=== PATIENT | male | born 1965 | race African-American/Black ===

== ENCOUNTER 2017-02-25 14:58 | Inpatient (IN) | payer OTHER ==
[2017-02-25 15:57] VITALS: BMI 23.6
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
[2017-02-25] MEDS ORDERED: MAG HYDROX/AL HYDROX/SIMETH 30 ML UNIT-DOSE CUP PO PRN (19:19)
[2017-02-25] MEDS ORDERED: chlordiazePOXIDE HCL 25 MG CAPSULE PO PRN (19:19)
[2017-02-25] MEDS ORDERED: guaiFENesin/D-METHORPHAN HB 10 ML UNIT-DOSE CUPS PO PRN (19:19)
[2017-02-25] MEDS ORDERED: LOPERAMIDE HCL 2 MG CAPSULE PO PRN (19:19)
[2017-02-25] MEDS ORDERED: MENTHOL/PHENOL 1 EACH UD MM PRN (19:19)
[2017-02-25] MEDS ORDERED: MAGNESIUM CITRATE 300 ML BOTTLE PO PRN (19:19)
[2017-02-25] MEDS ORDERED: ACETAMINOPHEN 325 MG TABLET (FP) PO PRN (19:19)
[2017-02-25] MEDS ORDERED: MAGNESIUM HYDROX 2400MG/30ML ORAL SUSPENSION 30 ML CUP PO PRN (19:19)
[2017-02-25] MEDS ORDERED: P-EPHED 60MG/TRIPROLIDI 2.5MG TABLET PO PRN (19:19)
[2017-02-25] MEDS ORDERED: ALBUTEROL SO4 6.7 GM HFA INHALER IH PRN (19:21)
[2017-02-25] MEDS ORDERED: HYDROCORTISONE 1% TOPICAL CREAM 30 GM TUBE TP PRN (19:21)
[2017-02-25] MEDS ORDERED: ALBUTEROL SO4 2.5/IPRATROPIUM 0.5 INH SOL 3 ML VIAL.NEB. NEB PRN (19:21)
[2017-02-25] MEDS: THIAMINE HCL 100 MG TABLET (FP) PO SCH (21:54)
[2017-02-25] MEDS: LIDOCAINE PATCH REMOVAL MC SCH (21:55)
[2017-02-25] MEDS: BUDESONIDE/FORMETEROL FUMARATE 80/4.5 mcg INHALER IH SCH (21:55)
[2017-02-25] MEDS: chlordiazePOXIDE HCL 25 MG CAPSULE PO SCH (22:00)
[2017-02-25 23:10] LABS: URINE APPEARANCE CLEAR; URINE BILIRUBIN NEGATIVE (NEGATIVE); URINE BLOOD NEGATIVE (NEGATIVE); URINE COLOR LTYELLOW; URINE GLUCOSE (UA) NEGATIVE (NEGATIVE); URINE KETONE NEGATIVE (NEGATIVE); URINE LEUK ESTERASE NEGATIVE (NEGATIVE); URINE NITRITE NEGATIVE (NEGATIVE); URINE PROTEIN 2+ (NEGATIVE); URINE UROBILINOGEN NEGATIVE mg/dL (0.2-1.0)
[2017-02-25 23:19] LABS: URINE MUCUS RARE; URINE RBC <1 /hpf (0-3); URINE WBC <1 /hpf (3-5)
[2017-02-26] MEDS: chlordiazePOXIDE HCL 25 MG CAPSULE PO SCH ×4 (05:31→22:46)
[2017-02-26 10:08] LABS: MCH 29.7 pg (25.7-33.7); MCHC 32.6 g/dl (32.0-35.9); MEAN CELL VOLUME 91.1 fl (80-96); MEAN PLT VOLUME 7.8 fl (7.5-11.1); PLATELET COUNT 237 K/MM3 (134-434); RDW 14.2 % (11.9-15.9); WHITE BLOOD COUNT 4.2 K/mm3 (4.0-10.0)
[2017-02-26] MEDS: PRENATAL VITAMINS W/ FOLIC ACID TABLET (FP) PO SCH (10:40)
[2017-02-26] MEDS: BUDESONIDE/FORMETEROL FUMARATE 80/4.5 mcg INHALER IH SCH ×2 (10:41→22:46)
[2017-02-26] MEDS: LIDOCAINE 5% TOPICAL PATCH TP SCH (10:41)
[2017-02-26 10:59] LABS: ALK PHOS 53 U/L (45-117); ANION GAP 7 (8-16); BILIRUBIN,TOTAL 0.7 mg/dL (0.2-1.0); CALCIUM 8.8 mg/dL (8.5-10.1); CO2 28 mmol/L (21-32); CREATININE 1.2 mg/dL (0.7-1.3); GLUCOSE,RANDOM 80 mg/dL (74-106); SGOT/AST 39 U/L (15-37); SGPT/ALT 33 U/L (12-78); TOT PROT 6.7 g/dl (6.4-8.2)
--- NOTE | 2017-02-26 11:21 | CONSULT ---
[facility] Psychiatric Consult - Data Date of interview: 02/26/17 Admission source: [facility] Identifying data: First admission to [facility] for this 52 y/o AA male seeking detox treatment for alcohol and marijuana dependence.Patient is single without children,homeless,unemployed and supported on welfare. Substance Abuse History: Confirmed by patient. Smoking Cessation. Smoking history: Former smoker. Have you smoked in the past 12 months: No. Aproximately how many cigarettes per day: 0. Hx Chewing Tobacco Use: No. Initiated information on smoking cessation: No. - Substance & Tx. History. Hx Alcohol Use: Yes. Hx Substance Use: Yes. Substance Use Type: Alcohol, Marijuana. Hx Substance Use Treatment: Yes (12/08/16 [facility]). - Substances Abused. Alcohol. Route: Oral. Frequency: Daily. Amount used: 8 -10 22 OZ BEERS. Age of first use: 17. Date of Last Use: 02/25/17. Marijuana/Hashish. Route: Smoking. Frequency: Daily. Amount used: $40. Age of first use: 17. Date of Last Use: 02/25/17 Medical History: Bronchial asthma. Psychiatric History: Patient denies. Physical/Sexual Abuse/Trauma History: No history of abuse reported. Additional Comment: Urine Drug Screen Results: THC-Marijuana, BZO- Benzodiazepines.Noted. Mental Status Exam - Mental Status Exam Alert and Oriented to: Time, Place, Person Cognitive Function: Good Patient Appearance: Well Groomed Mood: Hopeful, Euthymic Affect: Appropriate, Normal Range Patient Behavior: Fatigued, Appropriate, Cooperative Speech Pattern: Clear Voice Loudness: Normal Thought Process: Intact, Goal Oriented Thought Disorder: Not Present Hallucinations: Denies Suicidal Ideation: Denies Homicidal Ideation: Denies Insight/Judgement: Poor Sleep: Fair Appetite: Good Muscle strength/Tone: Normal Gait/Station: Normal Psychiatric Findings - Problem List ([place] 1, 2,3) (1) Alcohol dependence with uncomplicated withdrawal Current Visit: Yes Status: Acute (2) Cannabis dependence, uncomplicated Current Visit: Yes Status: Acute (3) Dermatitis Current Visit: Yes Status: Chronic Comment: back (4) Asthma Current Visit: Yes Status: Chronic Qualifiers: Asthma severity: mild persistent Asthma complication type: with status asthmaticus Qualified Code(s): J45.32 - Mild persistent asthma with status asthmaticus (5) Chronic back pain Current Visit: Yes Status: Chronic Qualifiers: Back pain location: low back pain Back pain laterality: midline Sciatica presence: without sciatica Qualified Code(s): M54.5 - Low back pain; G89.29 - Other chronic pain (6) Positive PPD, treated Current Visit: Yes Status: Resolved - Initial Treatment Plan Initial Treatment Plan: Psychoeducation.Detoxification.Observation.
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
[2017-02-26] MEDS: HYDROCORTISONE 1% TOPICAL CREAM 30 GM TUBE TP SCH ×3 (14:31→21:47)
[2017-02-26] MEDS: IBUPROFEN 400 MG TABLET (FP) PO PRN ×2 (17:15→22:48)
[2017-02-26] MEDS: THIAMINE HCL 100 MG TABLET (FP) PO SCH (22:45)
[2017-02-26] MEDS: diphenhydrAMINE HCL 50 MG CAPSULE PO PRN (22:46)
[2017-02-26] MEDS: LIDOCAINE PATCH REMOVAL MC SCH (22:46)
[2017-02-27] MEDS: chlordiazePOXIDE HCL 25 MG CAPSULE PO SCH ×3 (05:32→17:19)
[2017-02-27] MEDS: IBUPROFEN 400 MG TABLET (FP) PO PRN (08:35)
[2017-02-27] MEDS: HYDROCORTISONE 1% TOPICAL CREAM 30 GM TUBE TP SCH ×4 (11:01→22:54)
[2017-02-27] MEDS: BUDESONIDE/FORMETEROL FUMARATE 80/4.5 mcg INHALER IH SCH ×2 (11:01→23:30)
[2017-02-27] MEDS: PRENATAL VITAMINS W/ FOLIC ACID TABLET (FP) PO SCH (11:01)
[2017-02-27] MEDS: LIDOCAINE 5% TOPICAL PATCH TP SCH (11:02)
--- NOTE | 2017-02-27 12:30 | PN ---
[facility] CIWA - CIWA Score Nausea/Vomitin-No Nausea/No Vomiting Muscle Tremors: 4-Moderate,w/Arms Extend Anxiety: 4-Mod. Anxious/Guarded Agitation: 4-Moderately Restless Paroxysmal Sweats: 1-Minimal Palms Moist Orientation: 0-Oriented Tacttile Disturbances: 3-Moderate Itch/Numb/Burn Auditory Disturbances: 0-None Visual Disturbances: 0-None Headache: 0-None Present CIWA-Ar Total Score: 16 S Progress Note (SOAP) Subjective: ANXIETY,SWEATS,IRRITABILITY, PAIN MOUTH TRUAMA. Objective: 02/27/17 12:29 Vital Signs Temperature 97.4 F L 02/27/17 10:17 Pulse Rate 69 02/27/17 10:17 Respiratory Rate 16 02/27/17 10:17 Blood Pressure 122/86 02/27/17 10:17 O2 Sat by Pulse Oximetry (%) Laboratory Last Values WBC 4.2 K/mm3 (4.0-10.0) 02/26/17 07:00 RBC 4.57 M/mm3 (4.00-5.60) 02/26/17 07:00 Hgb 13.6 GM/dL (11.7-16.9) 02/26/17 07:00 Hct 41.7 % (35.4-49) 02/26/17 07:00 MCV 91.1 fl (80-96) 02/26/17 07:00 MCH 29.7 pg (25.7-33.7) 02/26/17 07:00 MCHC 32.6 g/dl (32.0-35.9) 02/26/17 07:00 RDW 14.2 % (11.9-15.9) 02/26/17 07:00 Plt Count 237 K/MM3 (134-434) 02/26/17 07:00 MPV 7.8 fl (7.5-11.1) 02/26/17 07:00 Sodium 140 mmol/L (136-145) 02/26/17 07:00 Potassium 3.6 mmol/L (3.5-5.1) 02/26/17 07:00 Chloride 105 mmol/L (98-107) 02/26/17 07:00 Carbon Dioxide 28 mmol/L (21-32) 02/26/17 07:00 Anion Gap 7 (8-16) L 02/26/17 07:00 BUN 15 mg/dL (7-18) 02/26/17 07:00 Creatinine 1.2 mg/dL (0.7-1.3) 02/26/17 07:00 Creat Clearance w eGFR > 60 (>60) 02/26/17 07:00 Random Glucose 80 mg/dL (74-106) 02/26/17 07:00 Calcium 8.8 mg/dL (8.5-10.1) 02/26/17 07:00 Total Bilirubin 0.7 mg/dL (0.2-1.0) 02/26/17 07:00 AST 39 U/L (15-37) H 02/26/17 07:00 ALT 33 U/L (12-78) 02/26/17 07:00 Alkaline Phosphatase 53 U/L (45-117) 02/26/17 07:00 Total Protein 6.7 g/dl (6.4-8.2) 02/26/17 07:00 Albumin 3.0 g/dl (3.4-5.0) L 02/26/17 07:00 Urine Color Ltyellow 02/25/17 23:00 Urine Appearance Clear 02/25/17 23:00 Urine pH 6.0 (5.0-8.0) 02/25/17 23:00 Ur Specific [place] 1.020 (1.005-1.025) 02/25/17 23:00 Urine Protein 2+ (NEGATIVE) H 02/25/17 23:00 Urine Glucose (UA) Negative (NEGATIVE) 02/25/17 23:00 Urine Ketones Negative (NEGATIVE) 02/25/17 23:00 Urine Blood Negative (NEGATIVE) 02/25/17 23:00 Urine Nitrite Negative (NEGATIVE) 02/25/17 23:00 Urine Bilirubin Negative (NEGATIVE) 02/25/17 23:00 Urine Urobilinogen Negative mg/dL (0.2-1.0) 02/25/17 23:00 Ur Leukocyte Esterase Negative (NEGATIVE) 02/25/17 23:00 Urine RBC <1 /hpf (0-3) 02/25/17 23:00 Urine WBC <1 /hpf (3-5) 02/25/17 23:00 Urine Mucus Rare 02/25/17 23:00 RPR Titer Nonreactive (NONREACTIVE) 02/26/17 07:00 Assessment: 02/27/17 12:29 WITHDRAWAL SX Plan: CONTINUE DETOX
[2017-02-27] MEDS ORDERED: LIDOCAINE VISCOUS 2% ORAL/TOP 20 ML UNIT-DOSE CUP MM PRN (12:31)
[2017-02-27] MEDS ORDERED: LIDOCAINE VISCOUS 2% ORAL/TOP 20 ML UNIT-DOSE CUP MM ONE (13:00)
[2017-02-27] MEDS: chlordiazePOXIDE 5 MG CAPSULE PO SCH (22:52)
[2017-02-27] MEDS: THIAMINE HCL 100 MG TABLET (FP) PO SCH (22:52)
[2017-02-27] MEDS: diphenhydrAMINE HCL 50 MG CAPSULE PO PRN (22:53)
[2017-02-27] MEDS: LIDOCAINE PATCH REMOVAL MC SCH (23:29)
[2017-02-28] MEDS: hydrOXYzine PAMOATE 50 MG CAPSULE (FP) PO PRN (02:52)
[2017-02-28] MEDS: chlordiazePOXIDE 5 MG CAPSULE PO SCH ×3 (06:10→17:10)
[2017-02-28] MEDS: LIDOCAINE 5% TOPICAL PATCH TP SCH (10:54)
[2017-02-28] MEDS: BUDESONIDE/FORMETEROL FUMARATE 80/4.5 mcg INHALER IH SCH ×2 (10:54→22:40)
[2017-02-28] MEDS: PRENATAL VITAMINS W/ FOLIC ACID TABLET (FP) PO SCH (10:54)
[2017-02-28] MEDS: HYDROCORTISONE 1% TOPICAL CREAM 30 GM TUBE TP SCH ×4 (10:55→22:40)
--- NOTE | 2017-02-28 11:35 | EKG ---
Test Reason : Blood Pressure : / mmHG Vent. Rate : 065 BPM Atrial Rate : 065 BPM P-R Int : 138 ms QRS Dur : 086 ms QT Int : 400 ms P-R-T Axes : 060 074 049 degrees QTc Int : 416 ms NORMAL SINUS RHYTHM NORMAL ECG NO PREVIOUS ECGS AVAILABLE Confirmed by JESSICA STEIN MD ([id number]) on 02/28/2017 11:35:35 AM Referred By: Confirmed By:JESSICA STEIN MD
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
[2017-02-28] MEDS: chlordiazePOXIDE HCL 10 MG CAPSULE PO SCH (22:39)
[2017-02-28] MEDS: diphenhydrAMINE HCL 50 MG CAPSULE PO PRN (22:39)
[2017-02-28] MEDS: THIAMINE HCL 100 MG TABLET (FP) PO SCH (22:39)
[2017-02-28] MEDS: LIDOCAINE PATCH REMOVAL MC SCH (22:40)
[2017-03-01] MEDS: hydrOXYzine PAMOATE 50 MG CAPSULE (FP) PO PRN (02:16)
[2017-03-01] MEDS: chlordiazePOXIDE HCL 10 MG CAPSULE PO SCH (05:09)
--- NOTE | 2017-03-01 09:29 | DS ---
[facility] Detox Discharge Summary Admission Date: 02/25/17 Discharge Date: 03/01/17 - History Present History: Alcohol Dependence, Cannabis Dependence Additional Comments: DETOX COMPLETED.ALERT O X 3.NAD. PT INSTRUCTED TO FOLLOW UP WITH PMD FOR MEDICAL MANAGEMENT Pertinent Past History: ASTHMA CHRONIC LOWER BACK PAIN - Physical Exam Results Vital Signs: Vital Signs Temperature 97.7 F 03/01/17 06:44 Pulse Rate 92 H 03/01/17 06:44 Respiratory Rate 18 03/01/17 06:44 Blood Pressure 132/94 03/01/17 06:44 O2 Sat by Pulse Oximetry (%) Pertinent Admission Physical Exam Findings: WITHDRAWAL SX Laboratory Last Values WBC 4.2 K/mm3 (4.0-10.0) 02/26/17 07:00 RBC 4.57 M/mm3 (4.00-5.60) 02/26/17 07:00 Hgb 13.6 GM/dL (11.7-16.9) 02/26/17 07:00 Hct 41.7 % (35.4-49) 02/26/17 07:00 MCV 91.1 fl (80-96) 02/26/17 07:00 MCH 29.7 pg (25.7-33.7) 02/26/17 07:00 MCHC 32.6 g/dl (32.0-35.9) 02/26/17 07:00 RDW 14.2 % (11.9-15.9) 02/26/17 07:00 Plt Count 237 K/MM3 (134-434) 02/26/17 07:00 MPV 7.8 fl (7.5-11.1) 02/26/17 07:00 Sodium 140 mmol/L (136-145) 02/26/17 07:00 Potassium 3.6 mmol/L (3.5-5.1) 02/26/17 07:00 Chloride 105 mmol/L (98-107) 02/26/17 07:00 Carbon Dioxide 28 mmol/L (21-32) 02/26/17 07:00 Anion Gap 7 (8-16) L 02/26/17 07:00 BUN 15 mg/dL (7-18) 02/26/17 07:00 Creatinine 1.2 mg/dL (0.7-1.3) 02/26/17 07:00 Creat Clearance w eGFR > 60 (>60) 02/26/17 07:00 Random Glucose 80 mg/dL (74-106) 02/26/17 07:00 Calcium 8.8 mg/dL (8.5-10.1) 02/26/17 07:00 Total Bilirubin 0.7 mg/dL (0.2-1.0) 02/26/17 07:00 AST 39 U/L (15-37) H 02/26/17 07:00 ALT 33 U/L (12-78) 02/26/17 07:00 Alkaline Phosphatase 53 U/L (45-117) 02/26/17 07:00 Total Protein 6.7 g/dl (6.4-8.2) 02/26/17 07:00 Albumin 3.0 g/dl (3.4-5.0) L 02/26/17 07:00 Urine Color Ltyellow 02/25/17 23:00 Urine Appearance Clear 02/25/17 23:00 Urine pH 6.0 (5.0-8.0) 02/25/17 23:00 Ur Specific [place] 1.020 (1.005-1.025) 02/25/17 23:00 Urine Protein 2+ (NEGATIVE) H 02/25/17 23:00 Urine Glucose (UA) Negative (NEGATIVE) 02/25/17 23:00 Urine Ketones Negative (NEGATIVE) 02/25/17 23:00 Urine Blood Negative (NEGATIVE) 02/25/17 23:00 Urine Nitrite Negative (NEGATIVE) 02/25/17 23:00 Urine Bilirubin Negative (NEGATIVE) 02/25/17 23:00 Urine Urobilinogen Negative mg/dL (0.2-1.0) 02/25/17 23:00 Ur Leukocyte Esterase Negative (NEGATIVE) 02/25/17 23:00 Urine RBC <1 /hpf (0-3) 02/25/17 23:00 Urine WBC <1 /hpf (3-5) 02/25/17 23:00 Urine Mucus Rare 02/25/17 23:00 RPR Titer Nonreactive (NONREACTIVE) 02/26/17 07:00 - Treatment Hospital Course: Detox Protocol Followed, Detoxed Safely, Responded well, Discharged Condition Good, Rehab Referral Accepted Patient has Accepted a Rehab Referral to: [facility] - Medication Discharge Medications: Ambulatory Orders Albuterol Sulfate Inhaler - [Ventolin Hfa Inhaler -] 2 inh PO Q4H PRN 02/25/17 Budesonide/Formeterol Fumarate [SYMBICORT 80/4.5mcg -] 1 inh PO BID 02/25/17 - Diagnosis (1) Alcohol dependence with uncomplicated withdrawal Current Visit: Yes Status: Acute (2) Cannabis dependence, uncomplicated Current Visit: Yes Status: Acute (3) Weight loss Current Visit: Yes Status: Acute (4) Asthma Current Visit: Yes Status: Chronic Qualifiers: Asthma severity: mild intermittent Asthma complication type: uncomplicated Qualified Code(s): J45.20 - Mild intermittent asthma, uncomplicated (5) Chronic back pain Current Visit: Yes Status: Chronic Qualifiers: Back pain location: low back pain Back pain laterality: midline Sciatica presence: without sciatica Qualified Code(s): M54.5 - Low back pain; G89.29 - Other chronic pain (6) Dermatitis Current Visit: Yes Status: Acute (7) Laceration of mouth Current Visit: Yes Status: Acute Qualifiers: Encounter type: sequela Qualified Code(s): S01.512S - Laceration without foreign body of oral cavity, sequela (8) Laceration of mouth, internal Current Visit: Yes Status: Acute Qualifiers: Encounter type: sequela Qualified Code(s): S01.512S - Laceration without foreign body of oral cavity, sequela - AMA Did Patient Leave Against Medical Advice: No
[2017-03-01 10:04] VITALS: BP 117/88; PULSE 93; TEMP 99
== END 2017-03-01 09:02 | disposition home or self-care (01) | DRG 775 ==
LOC: YASAS 14:58 → Y3N 20:12
PROVIDERS: ADMIT Internal Medicine Addiction Medicine; ATTEND Internal Medicine Addiction Medicine
PROC: HZ2ZZZZ Detoxification Services for Substance Abuse Treatment (ICD-10-PCS; principal; 2017-03-01)
DX: F10.230 Alcohol dependence with withdrawal, uncomplicated (principal); F12.20 Cannabis dependence, uncomplicated; F34.1 Dysthymic disorder; J45.20 Mild intermittent asthma, uncomplicated; L30.9 Dermatitis, unspecified; M54.5 Low back pain; G89.29 Other chronic pain; R76.11 Nonspecific reaction to tuberculin skin test without active tuberculosis
CPT/HCPCS: 36415; 71020-TC; 80053; 81003; 81015; 85027; 86593; 93005; 93010

== ENCOUNTER 2020-03-22 13:08 | Inpatient (IN) | payer OTHER ==
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
[2020-03-22] MEDS ORDERED: MAGNESIUM CITRATE 300 ML BOTTLE PO PRN (15:59)
[2020-03-22] MEDS ORDERED: ACETAMINOPHEN 325 MG TABLET (FP) PO PRN (15:59)
[2020-03-22] MEDS ORDERED: MAG HYDROX/AL HYDROX/SIMETH 30 ML UNIT-DOSE CUP PO PRN (15:59)
[2020-03-22] MEDS ORDERED: chlordiazePOXIDE HCL 25 MG CAPSULE PO PRN (15:59)
[2020-03-22] MEDS ORDERED: ONDANSETRON *ODT* 4 MG TABLET SL PRN (15:59)
[2020-03-22] MEDS ORDERED: NICOTINE POLACRILEX 2 MG GUM BUC PRN (15:59)
[2020-03-22] MEDS ORDERED: MAGNESIUM HYDROX 2400MG/30ML ORAL SUSPENSION 30 ML CUP PO PRN (15:59)
[2020-03-22] MEDS ORDERED: BISMUTH SUBSALICYLATE 524 MG/30 ML UD PO PRN (15:59)
[2020-03-22] MEDS ORDERED: MENTHOL/PHENOL 1 EACH UD MM PRN (15:59)
[2020-03-22] MEDS ORDERED: ALBUTEROL SO4 HFA INHALER IH PRN (16:09)
--- OUTSIDE RECORDS SUMMARY | 2020-03-22 17:45 | XMS ---
:1965 [facility] Support Name Relationship Address Phone UE Unavailable Unavailable Unavailable RICKY BILLINGSLEY SELF / SAME PATIENT [place] [phone] Re-disclosure Warning The records that you are about to access may contain information from federally- assisted alcohol or drug abuse programs. If such information is present, then the following federally mandated warning applies: This information has been disclosed to you from records protected by federal confidentiality rules (42 CFR part 2). The federal rules prohibit you from making any further disclosure of this information unless further disclosure is expressly permitted by the written consent of the person to whom it pertains or as otherwise permitted by 42 CFR part 2. A general authorization for the release of medical or other information is NOT sufficient for this purpose. The Federal rules restrict any use of the information to criminally investigate or prosecute any alcohol or drug abuse patient.The records that you are about to access may contain highly sensitive health information, the redisclosure of which is protected by Article 27-F of the [facility] Public Health law. If you continue you may haveaccess to information: Regarding HIV / AIDS; Provided by facilities licensed or operated by the [facility] Office of Mental Health; or Provided by the [facility] Office for People With Developmental Disabilities. If such information is present, then the following [facility] mandated warning applies: This information has been disclosed to you from confidential records which are protected by state law. State law prohibits you from making any further disclosure of this information without the specific written consent of the person to whom it pertains, or as otherwise permitted by law. Any unauthorized further disclosure in violation of state law may result in a fine or group home sentence or both. A general authorization for the release of medical or other information is NOT sufficient authorization for further disclosure. Insurance Providers Payer name Policy type Policy ID Covered Covered republican's Policy P deyanira / Coverage republican ID relationship to Clement Inf ormation type clement [facility] [id number] [facility] HEALTH NON CAP
[2020-03-22] MEDS: chlordiazePOXIDE HCL 25 MG CAPSULE PO SCH ×2 (17:55→22:53)
[2020-03-22] MEDS: IBUPROFEN 400 MG TABLET (FP) PO PRN (17:58)
[2020-03-22] MEDS: METHOCARBAMOL 500 MG TABLET PO PRN (17:58)
[2020-03-22] MEDS: hydrOXYzine PAMOATE 25 MG CAPSULE (FP) PO SCH ×2 (17:58→22:56)
[2020-03-22] MEDS: THIAMINE HCL 100 MG TABLET (FP) PO SCH (22:53)
[2020-03-22] MEDS: MELATONIN 5 MG TABLETS PO SCH (22:55)
[2020-03-22] MEDS: BUDESONIDE/FORMETEROL FUMARATE 80/4.5 mcg INHALER IH SCH (22:57)
[2020-03-22] MEDS: BICTEGRAV/EMTRICIT/TENOFOV (BIKTARVY) 50-200-25 MG TABLET PO SCH (23:42)
[2020-03-23] MEDS: BICTEGRAV/EMTRICIT/TENOFOV (BIKTARVY) 50-200-25 MG TABLET PO SCH ×2 (00:01→15:02)
[2020-03-23] MEDS: hydrOXYzine PAMOATE 25 MG CAPSULE (FP) PO SCH ×5 (05:30→23:12)
[2020-03-23] MEDS: chlordiazePOXIDE HCL 25 MG CAPSULE PO SCH ×4 (05:30→23:11)
[2020-03-23] MEDS: METHOCARBAMOL 500 MG TABLET PO PRN ×3 (05:33→23:16)
[2020-03-23] MEDS: IBUPROFEN 400 MG TABLET (FP) PO PRN ×2 (05:33→18:52)
--- NOTE | 2020-03-23 09:31 | PN ---
[facility] CIWA - CIWA Score Nausea/Vomitin-Mild Nausea/No Vomiting Muscle Tremors: 2 Anxiety: 2 Agitation: 2 Paroxysmal Sweats: 1-Minimal Palms Moist Orientation: 0-Oriented Tacttile Disturbances: 1-Very Mild Itch/Numbness Auditory Disturbances: 0-None Visual Disturbances: 0-None Headache: 2-Mild CIWA-Ar Total Score: 11 S Progress Note (SOAP) Subjective: alert,irritable,anxious,interrupted sleep,aching pain,poor appetite, Objective: 03/23/20 15:19 Vital Signs Temperature 97.5 F L 03/23/20 12:46 Pulse Rate 91 H 03/23/20 12:46 Respiratory Rate 18 03/23/20 12:46 Blood Pressure 124/93 03/23/20 12:46 O2 Sat by Pulse Oximetry (%) 96 03/23/20 12:46 Laboratory Last Values WBC 4.1 K/mm3 (4.0-10.0) 03/23/20 08:00 RBC 4.47 M/mm3 (4.00-5.60) 03/23/20 08:00 Hgb 13.8 GM/dL (11.7-16.9) 03/23/20 08:00 Hct 40.7 % (35.4-49) 03/23/20 08:00 MCV 91.1 fl (80-96) 03/23/20 08:00 MCH 30.9 pg (25.7-33.7) 03/23/20 08:00 MCHC 33.9 g/dl (32.0-35.9) 03/23/20 08:00 RDW 13.9 % (11.9-15.9) 03/23/20 08:00 Plt Count 253 K/MM3 (134-434) 03/23/20 08:00 MPV 8.0 fl (7.5-11.1) 03/23/20 08:00 Sodium 140 mmol/L (136-145) 03/23/20 08:00 Potassium 3.8 mmol/L (3.5-5.1) 03/23/20 08:00 Chloride 106 mmol/L (98-107) 03/23/20 08:00 Carbon Dioxide 29 mmol/L (21-32) 03/23/20 08:00 Anion Gap 6 MMOL/L (8-16) L 03/23/20 08:00 BUN 16.7 mg/dL (7-18) 03/23/20 08:00 Creatinine 1.2 mg/dL (0.55-1.3) 03/23/20 08:00 Est GFR (CKD-EPI)AfAm 78.43 03/23/20 08:00 Est GFR (CKD-EPI)NonAf 67.67 03/23/20 08:00 Random Glucose 91 mg/dL (74-106) 03/23/20 08:00 Calcium 8.3 mg/dL (8.5-10.1) L 03/23/20 08:00 Total Bilirubin 1.1 mg/dL (0.2-1) H 03/23/20 08:00 AST 18 U/L (15-37) 03/23/20 08:00 ALT 19 U/L (13-61) 03/23/20 08:00 Alkaline Phosphatase 56 U/L (45-117) 03/23/20 08:00 Total Protein 6.6 g/dl (6.4-8.2) 03/23/20 08:00 Albumin 3.2 g/dl (3.4-5.0) L 03/23/20 08:00 Syphilis Serology Non-reactive (NONREACTIVE) 03/23/20 08:00 COVID-19 (LAURA) Not detected (Not Detected) 03/22/20 17:25 Assessment: 03/23/20 15:20 withdrawal symptom Plan: continue librium regimen,ensure plus 120 mls po with each meal
[2020-03-23] MEDS: BUDESONIDE/FORMETEROL FUMARATE 80/4.5 mcg INHALER IH SCH ×2 (10:15→23:11)
[2020-03-23] MEDS: NICOTINE 7 MG/24 HOURS TOPICAL PATCH TD SCH (10:15)
[2020-03-23] MEDS: PRENATAL VITAMINS W/ FOLIC ACID TABLET (FP) PO SCH (10:15)
[2020-03-23] MEDS: ACETAMINOPHEN 325 MG TABLET (FP) PO PRN ×2 (10:20→23:17)
[2020-03-23 10:48] LABS: HEMATOCRIT 40.7 % (35.4-49); HEMOGLOBIN 13.8 GM/dL (11.7-16.9); MCH 30.9 pg (25.7-33.7); MCHC 33.9 g/dl (32.0-35.9); MEAN CELL VOLUME 91.1 fl (80-96); PLATELET COUNT 253 K/MM3 (134-434); RBC 4.47 M/mm3 (4.00-5.60); RDW 13.9 % (11.9-15.9); WHITE BLOOD COUNT 4.1 K/mm3 (4.0-10.0)
[2020-03-23 11:04] LABS: ALBUMIN 3.2 g/dl (3.4-5.0); BLOOD UREA NITROGEN 16.7 mg/dL (7-18); CALCIUM 8.3 mg/dL (8.5-10.1); POTASSIUM 3.8 mmol/L (3.5-5.1)
[2020-03-23 11:06] LABS: BILIRUBIN,TOTAL 1.1 mg/dL (0.2-1); CREATININE 1.2 mg/dL (0.55-1.3); TOT PROT 6.6 g/dl (6.4-8.2)
[2020-03-23] MEDS: MELATONIN 5 MG TABLETS PO SCH (23:11)
[2020-03-23] MEDS: THIAMINE HCL 100 MG TABLET (FP) PO SCH (23:12)
[2020-03-24] MEDS: chlordiazePOXIDE HCL 25 MG CAPSULE PO SCH ×3 (05:34→17:18)
[2020-03-24] MEDS: hydrOXYzine PAMOATE 25 MG CAPSULE (FP) PO SCH ×2 (05:34→10:34)
[2020-03-24] MEDS: METHOCARBAMOL 500 MG TABLET PO PRN ×2 (05:37→15:14)
[2020-03-24] MEDS: IBUPROFEN 400 MG TABLET (FP) PO PRN (05:37)
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
[2020-03-24] MEDS ORDERED: hydrOXYzine PAMOATE 50 MG CAPSULE (FP) PO PRN (10:26)
[2020-03-24] MEDS: NICOTINE 7 MG/24 HOURS TOPICAL PATCH TD SCH (10:32)
[2020-03-24] MEDS: BUDESONIDE/FORMETEROL FUMARATE 80/4.5 mcg INHALER IH SCH (10:32)
[2020-03-24] MEDS: BICTEGRAV/EMTRICIT/TENOFOV (BIKTARVY) 50-200-25 MG TABLET PO SCH (10:32)
[2020-03-24] MEDS: PRENATAL VITAMINS W/ FOLIC ACID TABLET (FP) PO SCH (10:32)
--- NOTE | 2020-03-24 13:13 | PN ---
S CIWA - CIWA Score Nausea/Vomitin-No Nausea/No Vomiting Muscle Tremors: 3 Anxiety: 2 Agitation: 2 Paroxysmal Sweats: 2 Orientation: 0-Oriented Tacttile Disturbances: 0-None Auditory Disturbances: 0-None Visual Disturbances: 0-None Headache: 0-None Present CIWA-Ar Total Score: 9 BHS Progress Note (SOAP) Subjective: irritable sweats agitation restless Objective: 03/24/20 13:12 Vital Signs Temperature 96.9 F L 03/24/20 09:15 Pulse Rate 108 H 03/24/20 09:15 Respiratory Rate 18 03/24/20 09:15 Blood Pressure 113/76 03/24/20 09:15 O2 Sat by Pulse Oximetry (%) 98 03/24/20 09:15 Laboratory Tests 03/22/20 03/23/20 03/23/20 17:25 08:00 08:00 WBC 4.1 RBC 4.47 Hgb 13.8 Hct 40.7 MCV 91.1 MCH 30.9 MCHC 33.9 RDW 13.9 Plt Count 253 MPV 8.0 Sodium Potassium Chloride Carbon Dioxide Anion Gap BUN Creatinine Est GFR (CKD-EPI)AfAm Est GFR (CKD-EPI)NonAf Random Glucose Calcium Total Bilirubin AST ALT Alkaline Phosphatase Total Protein Albumin Syphilis Serology Non-reactive COVID-19 (LAURA) Not detected 03/23/20 08:00 WBC RBC Hgb Hct MCV MCH MCHC RDW Plt Count MPV Sodium 140 Potassium 3.8 Chloride 106 Carbon Dioxide 29 Anion Gap 6 L BUN 16.7 Creatinine 1.2 Est GFR (CKD-EPI)AfAm 78.43 Est GFR (CKD-EPI)NonAf 67.67 Random Glucose 91 Calcium 8.3 L Total Bilirubin 1.1 H AST 18 ALT 19 Alkaline Phosphatase 56 Total Protein 6.6 Albumin 3.2 L Syphilis Serology COVID-19 (LAURA) labs noted aaox3 ambulating no acute distress Assessment: 03/24/20 13:13 withdrawals Plan: continue detox
[2020-03-24 18:27] VITALS: BP 131/91; PULSE 91; TEMP 97.1
[2020-03-24] MEDS ORDERED: SUVOREXANT 10 MG TABLET PO PRN (22:00)
[2020-03-25] MEDS ORDERED: chlordiazePOXIDE HCL 10 MG CAPSULE PO PRN
[2020-03-25] MEDS ORDERED: chlordiazePOXIDE HCL 10 MG CAPSULE PO SCH (05:00)
--- NOTE | 2020-03-25 23:17 | DS ---
[facility] Detox Discharge Summary Admission Date: 03/22/20 Discharge Date: 03/24/20 - History Additional Comments: Late Entry Patient had left against medical advice yesterday prior to a provider assessment. As per the nurse, MsBora Marva Pardo, patient did not give any reason for his decision to abort detoxification. He had signed the AMA form prior to leaving. Pertinent Past History: Alcohol dependence Cannabis dependence Dermatitis asthma HIV+, Chronic back pain PPD positive - Physical Exam Results Vital Signs: Vital Signs Temperature 97.1 F L 03/24/20 16:33 Pulse Rate 91 H 03/24/20 16:33 Respiratory Rate 18 03/24/20 16:33 Blood Pressure 131/91 03/24/20 16:33 O2 Sat by Pulse Oximetry (%) 98 03/24/20 13:30 Laboratory Last Values WBC 4.1 K/mm3 (4.0-10.0) 03/23/20 08:00 RBC 4.47 M/mm3 (4.00-5.60) 03/23/20 08:00 Hgb 13.8 GM/dL (11.7-16.9) 03/23/20 08:00 Hct 40.7 % (35.4-49) 03/23/20 08:00 MCV 91.1 fl (80-96) 03/23/20 08:00 MCH 30.9 pg (25.7-33.7) 03/23/20 08:00 MCHC 33.9 g/dl (32.0-35.9) 03/23/20 08:00 RDW 13.9 % (11.9-15.9) 03/23/20 08:00 Plt Count 253 K/MM3 (134-434) 03/23/20 08:00 MPV 8.0 fl (7.5-11.1) 03/23/20 08:00 Sodium 140 mmol/L (136-145) 03/23/20 08:00 Potassium 3.8 mmol/L (3.5-5.1) 03/23/20 08:00 Chloride 106 mmol/L (98-107) 03/23/20 08:00 Carbon Dioxide 29 mmol/L (21-32) 03/23/20 08:00 Anion Gap 6 MMOL/L (8-16) L 03/23/20 08:00 BUN 16.7 mg/dL (7-18) 03/23/20 08:00 Creatinine 1.2 mg/dL (0.55-1.3) 03/23/20 08:00 Est GFR (CKD-EPI)AfAm 78.43 03/23/20 08:00 Est GFR (CKD-EPI)NonAf 67.67 03/23/20 08:00 Random Glucose 91 mg/dL (74-106) 03/23/20 08:00 Calcium 8.3 mg/dL (8.5-10.1) L 03/23/20 08:00 Total Bilirubin 1.1 mg/dL (0.2-1) H 03/23/20 08:00 AST 18 U/L (15-37) 03/23/20 08:00 ALT 19 U/L (13-61) 03/23/20 08:00 Alkaline Phosphatase 56 U/L (45-117) 03/23/20 08:00 Total Protein 6.6 g/dl (6.4-8.2) 03/23/20 08:00 Albumin 3.2 g/dl (3.4-5.0) L 03/23/20 08:00 Syphilis Serology Non-reactive (NONREACTIVE) 03/23/20 08:00 COVID-19 (LAURA) Not detected (Not Detected) 03/22/20 17:25 Pertinent Admission Physical Exam Findings: Alcohol withdrawal symptoms - Medication Discharge Medications: Ambulatory Orders Albuterol Sulfate Inhaler - [Ventolin Hfa Inhaler -] 2 inh PO Q4H PRN 02/25/17 Budesonide/Formeterol Fumarate [SYMBICORT 80/4.5mcg -] 1 inh PO BID 02/25/17 Bictegrav/Emtricit/Tenofov Ala [Biktarvy 50-200-25 mg Tablet] 1 each PO DAILY 03/22/20 - Diagnosis (1) Alcohol dependence with uncomplicated withdrawal Status: Acute (2) Cannabis dependence, uncomplicated Status: Chronic (3) Dermatitis Status: Chronic (4) Asthma Status: Chronic Qualifiers: Asthma severity: mild intermittent Asthma complication type: uncomplicated (5) Chronic back pain Status: Chronic Qualifiers: Back pain location: low back pain Back pain laterality: midline Sciatica presence: without sciatica Qualified Code(s): M54.5 - Low back pain; G89.29 - Other chronic pain (6) HIV positive Status: Chronic (7) Depression (emotion) Status: Suspected Qualifiers: Depression Type: dysthymia Qualified Code(s): F34.1 - Dysthymic disorder (8) PPD positive, treated Status: Chronic - AMA Did Patient Leave Against Medical Advice: Yes
[2020-03-26] MEDS ORDERED: chlordiazePOXIDE HCL 10 MG CAPSULE PO SCH (05:00)
[2020-03-27] MEDS ORDERED: chlordiazePOXIDE HCL 10 MG CAPSULE PO ONE (05:00)
== END 2020-03-24 21:12 | disposition left against medical advice (07) | DRG 770 ==
LOC: YASAS 13:08 → Y6N 15:55
PROVIDERS: ADMIT Allergy & Immunology; ATTEND Allergy & Immunology
PROC: HZ2ZZZZ Detoxification Services for Substance Abuse Treatment (ICD-10-PCS; principal; 2020-03-22)
DX: F10.230 Alcohol dependence with withdrawal, uncomplicated (principal); F12.20 Cannabis dependence, uncomplicated; F19.280 Other psychoactive substance dependence with psychoactive substance-induced anxiety disorder; F19.282 Other psychoactive substance dependence with psychoactive substance-induced sleep disorder; Z21 Asymptomatic human immunodeficiency virus [HIV] infection status; M54.5 Low back pain; M54.2 Cervicalgia; G89.29 Other chronic pain; R76.11 Nonspecific reaction to tuberculin skin test without active tuberculosis; Z90.13 Acquired absence of bilateral breasts and nipples; Z91.018 Allergy to other foods; Z56.0 Unemployment, unspecified; Z59.0 Homelessness
CPT/HCPCS: 36415; 71046-TC-FY; 80053; 85027; 86780; U0003